=== PATIENT | male | born 1985 | race Caucasian/White ===

== ENCOUNTER 2021-04-25 08:56 | Outpatient (REF) | payer OTHER, SELFPAY ==
--- NOTE | 2021-04-25 09:03 | EMG_ITS ---
This is a 36-year-old man who comes in with extreme anxiety and is concerned that he has ALS because he gets some twitching in his muscles, particularly on the right elbow more than the left. He also gets some cramping in his calf, left more than right, and this has been going on for over a year. His CPKs have been mildly elevated. A previous nerve conduction EMG study at [facility] about 8 months ago was normal. His neurological examination is normal. There is no fasciculations or weakness. IMPRESSION: Benign muscle fasciculations, rule out myopathy. Nerve conduction EMG study: Normal electrodiagnostic study of the right upper extremity and the left lower extremity with normal motor and sensory nerve conductions. There is no electrodiagnostic evidence of generalized peripheral neuropathy or nerve entrapment. Normal EMG of the right C5-T1 and the left L2-S1 innervated muscles with no evidence of denervated potentials or myopathic patterns. MD DAVID Hernadez/KYREE / [id number]
== END 2021-04-25 08:57 | disposition home or self-care (01) ==
LOC: HO.NEURO 08:56
PROVIDERS: PCP Internal Medicine; Visit Provider Nurse Practitioner Family
DX: M54.12 Radiculopathy, cervical region (principal); G72.9 Myopathy, unspecified
CPT/HCPCS: 95886; 95912